=== PATIENT | male | born 1965 | race Caucasian/White ===

== ENCOUNTER 2017-04-11 15:00 | Emergency (ER) | payer OTHER ==
[~2017-04-11] VITALS: Wt 100.0 kg
[2017-04-11] MEDS ORDERED: SOD CHLORIDE 0.9% 1,000 ML IV STA (15:05)
[2017-04-11 15:37] LABS: BASOPHIL # 0.1 10^3/ul (0.0-0.1); BASOPHILS % 0.5 % (0.0-2.0); EOSINOPHILS # 0.1 10^3/ul (0.0-0.5); EOSINOPHILS % 1.3 % (0.0-7.0); HEMATOCRIT 44.1 % (42.0-52.0); HEMOGLOBIN 15.4 g/dl (14.0-18.0); LYMPHOCYTES # 4.4 10^3/ul (0.8-2.9); LYMPHOCYTES % 42.4 % (15.0-51.0); MEAN CORPUSCULAR HEMOGLOBIN 33.5 pg (29.0-33.0); MEAN CORPUSCULAR HGB CONC 34.9 g/dl (32.0-37.0); MEAN CORPUSCULAR VOLUME 95.9 fl (82.0-101.0); MEAN PLATELET VOLUME 9.1 fl (7.4-10.4); MONOCYTE # 0.8 10^3/ul (0.3-0.9); MONOCYTES % 7.8 % (0.0-11.0); NEUTROPHIL # 4.9 10^3/ul (1.6-7.5); NEUTROPHILS % 47.7 % (39.0-77.0); PLATELET COUNT 230 10^3/UL (140-415); RED CELL DISTRIBUTION WIDTH 12.6 % (11.5-14.5); WHITE BLOOD COUNT 10.3 10^3/ul (4.8-10.8)
--- NOTE | 2017-04-11 16:00 | RADRPT ---
PROCEDURE: CT Head without contrast. CLINICAL INDICATION: Altered level of consciousness. TECHNIQUE: The study was performed utilizing a GE 64-slice multidetector CT scanner. Direct spiral axial CT images of the brain were obtained from the vertex to the skull base without contrast. The CTDI vol is 45.01 mGy and the DLP is 720.23 mGy-cm. The images were reviewed on a PACS workstation. One or more of the following dose reduction techniques were used: Automated exposure control. Adjustment of the mA and/or kV according to patient size. Use of iterative reconstruction technique. COMPARISON: No prior studies are available for comparison. FINDINGS: Exam is limited secondary to motion artifact. Mild diffuse cerebral atrophy is seen with a compensat ory ventricular enlargement. The navarro-white matter differentiation is maintained. No intra or extr a-axial fluid collection or mass effect or shift in the midline structures is seen. The visualized paranasal sinuses, mastoid air cells, orbits, and calvarium are unremarkable. Mild right posterior p arietal scalp soft tissue swelling is seen near the vertex. IMPRESSION: 1. No acute intracranial pathology. 2. Mild diffuse cerebral volume loss. 3. Mild right posterior parietal scalp soft tissue swelling. RPTAT: HPNM Physician Wiliam Date Time Electronically viewed and signed by Physician Wiliam on 04/11/2017 15:59 /
[2017-04-11 16:09] LABS: ALANINE AMINOTRANSFERASE 40 IU/L (13-69); ALBUMIN 4.5 g/dl (3.3-4.9); ALBUMIN/GLOBULIN RATIO 1.36; ALKALINE PHOSPHATASE 55 IU/L (42-121); ANION GAP 21 (8-16); ASPARTATE AMINO TRANSFERASE 31 IU/L (15-46); BILIRUBIN,INDIRECT 0.1 mg/dl (0-1.1); BILIRUBIN,TOTAL 0.1 mg/dl (0.2-1.3); BLOOD UREA NITROGEN 10 mg/dl (7-20); CALCIUM 8.5 mg/dl (8.4-10.2); CARBON DIOXIDE 24 mmol/L (21-31); CHLORIDE 106 mmol/L (97-110); CREATININE 0.71 mg/dl (0.61-1.24); GLUCOSE 91 mg/dl (70-220); SALICYLATE 3.5 mg/dl (5.0-30.0); SODIUM 147 mmol/L (135-144); TOTAL PROTEIN 7.8 g/dl (6.1-8.1)
[2017-04-11 16:11] LABS: ACETAMINOPHEN < 10.0 ug/ml (10.0-30.0)
--- NOTE | 2017-04-11 19:32 | ERD ---
ER Documentation Chief Complaint Chief Complaint aloc due to etoh since today. 2nd run with ems. no trauma. HPI Patient is a approximately 51-year-old male who presents altered. He was brought in by ambulance. He was drinking alcohol per paramedics. This is the second visit the paramedics today but he was not brought to the ER by paramedics and the first visit. A bystander called 911. His sugar was 87. I cannot obtain a history otherwise as he is altered. ROS All systems reviewed and are negative except as per history of present illness. PMhx/Soc Medical and Surgical Hx: Unable to obtain History of Surgery: No (UNK) Anesthesia Reaction: No (UNK) Hx Neurological Disorder: No (UNK) Hx Respiratory Disorders: No (UNK) Hx Cardiac Disorders: No (UNK) Hx Alcohol Use: Yes Hx Substance Use: No Hx Tobacco Use: No Smoking Status: Unknown if ever smoked FmHx Unable to obtain Physical Exam Vitals Vital Signs Date Time Temp Pulse Resp B/P Pulse Ox O2 Delivery O2 Flow Rate FiO2 04/11/17 15:35 Nasal Cannula 04/11/17 15:15 98.0 105 21 118/76 98 Physical Exam Const: Altered Head: Atraumatic Eyes: Normal Conjunctiva ENT: Normal External Ears, Nose and Mouth. Neck: Full range of motion..~ No meningismus. Resp: Clear to auscultation bilaterally Cardio: Regular rate and rhythm, no murmurs Abd: Soft, non tender, non distended. Normal bowel sounds Skin: No petechiae or rashes Back: No midline or flank tenderness Ext: No cyanosis, or edema Neur: Altered in response to sternal rub but does not follow commands, moves all 4 extremities Result Diagram: 04/11/17 1527 04/11/17 1527 Results 24 hrs Laboratory Tests Test 04/11/17 15:27 White Blood Count 10.310^3/ul Red Blood Count 4.6010^6/ul Hemoglobin 15.4g/dl Hematocrit 44.1% Mean Corpuscular Volume 95.9fl Mean Corpuscular Hemoglobin 33.5pg Mean Corpuscular Hemoglobin Concent 34.9g/dl Red Cell Distribution Width 12.6% Platelet Count 15286^3/UL Mean Platelet Volume 9.1fl Neutrophils % 47.7% Lymphocytes % 42.4% Monocytes % 7.8% Eosinophils % 1.3% Basophils % 0.5% Nucleated Red Blood Cells % 0.0/100WBC Neutrophils # 4.910^3/ul Lymphocytes # 4.410^3/ul Monocytes # 0.810^3/ul Eosinophils # 0.110^3/ul Basophils # 0.110^3/ul Nucleated Red Blood Cells # 0.010^3/ul Sodium Level 147mmol/L Potassium Level 4.0mmol/L Chloride Level 106mmol/L Carbon Dioxide Level 24mmol/L Anion Gap 21 Blood Urea Nitrogen 10mg/dl Creatinine 0.71mg/dl Glucose Level 91mg/dl Osmolality 391mOsm/kg Calcium Level 8.5mg/dl Total Bilirubin 0.1mg/dl Direct Bilirubin 0.00mg/dl Indirect Bilirubin 0.1mg/dl Aspartate Amino Transf (AST/SGOT) 31IU/L Alanine Aminotransferase (ALT/SGPT) 40IU/L Alkaline Phosphatase 55IU/L Total Protein 7.8g/dl Albumin 4.5g/dl Globulin 3.30g/dl Albumin/Globulin Ratio 1.36 Salicylates Level 3.5mg/dl Acetaminophen Level < 10.0ug/ml Ethyl Alcohol Level 379.0mg/dl Current Medications Medications (Trade) Dose Ordered Sig/Betzy Route PRN Reason Start Time Stop Time Status Last Admin Dose Admin Sodium Chloride (NS) 1,000 ml @ 1,000 mls/hr Q1H STAT IV 04/11/17 15:05 04/11/17 16:04 DC 04/11/17 15:40 Procedures/MDM CT brain shows no skull fracture or intracranial hemorrhage per radiology. EKG read by me: Rate/Rhythm: Tachycardia Intervals: Normal Impression: Sinus tachycardia without ischemia Patient is a 51-year-old male who presents altered. His alcohol level was found to be extremely high which would be consistent with acute alcohol intoxication causing his acute encephalopathy. At this point I see no other signs of intoxication. There is no intra-cranial hemorrhage or mass. EKG shows sinus tachycardia but no other acute arrhythmias. The patient will be watched in the ER for over 4 hours until he is clinically sober and then will be discharged. He should not drink alcohol to excess in the future. Critical Care: Time: 35 minutes excluding all billable procedures. Treatments/Evaluations: Close monitoring and treatment of unstable vital signs, cardiorespiratory, and neurologic status, while maintaining tight balance of fluid, respiratory, and cardiac interventions. Observation Note: Time: 4 hours Family Hx: Unable to obtain Evaluation: Multiple exams showed improving symptoms and no evidence of clinical decompensation. Departure Diagnosis: Primary Impression: Altered mental status Altered mental status type: unspecified Qualified Code: R41.82 - Altered mental status, unspecified altered mental status type Additional Impression: Alcoholic intoxication Complication of substance-induced condition: with delirium Qualified Code: F10.921 - Alcohol intoxication with delirium Condition: Fair Patient Instructions: Alcohol Intoxication Referrals: [facility] YOU HAVE RECEIVED A MEDICAL SCREENING EXAM AND THE RESULTS INDICATE THAT YOU DO NOT HAVE A CONDITION THAT REQUIRES URGENT TREATMENT IN THE EMERGENCY DEPARTMENT. FURTHER EVALUATION AND TREATMENT OF YOUR CONDITION CAN WAIT UNTIL YOU ARE SEEN IN YOUR DOCTORS OFFICE WITHIN THE NEXT 1-2 DAYS. IT IS YOUR RESPONSIBILITY TO MAKE AN APPOINTMENT FOR FOLOW-UP CARE. IF YOU HAVE A PRIMARY DOCTOR --you should call your primary doctor and schedule an appointment IF YOU DO NOT HAVE A PRIMARY DOCTOR YOU CAN CALL OUR PHYSICIAN REFERRAL HOTLINE AT IF YOU CAN NOT AFFORD TO SEE A PHYSICIAN YOU CAN CHOSE FROM THE FOLLOWING [facility] [address] [facility]. [facility] [address] [facility] [facility] [address] [facility] [facility] [address] [facility]. [facility] [address] [facility]. [facility]. [address] Additional Instructions: Call your primary care doctor TOMORROW for an appointment during the next 1 WEEK.Tell the secretary of state that you were referred from this facility.See the doctor sooner or return here if your condition worsens before your appointment time. HAYDEN EILZABETH MD Apr 11, 2017 19:32
[2017-04-11 19:58] VITALS: BP 116/73; PULSE 65; RESP 20
== END 2017-04-11 20:34 | disposition home or self-care (01) ==
LOC: E/R 15:00
DX: R41.82 Altered mental status, unspecified (principal); F10.921 Alcohol use, unspecified with intoxication delirium
CPT/HCPCS: 36415; 70450; 80053; 80306; 83930; 85025; J7030; Z7502